=== PATIENT | male | born 1980 | race Caucasian/White ===

== ENCOUNTER → 2025-06-03 14:12 | Outpatient (REF) | payer OTHER, SELFPAY | LOC: RAD 14:12 | PROVIDERS: ATTENDING PHYSICIAN Nurse Practitioner | DX: M79.662 Pain in left lower leg (principal) | CPT/HCPCS: 93971 ==

== ENCOUNTER → 2025-07-22 09:38 | Outpatient (REF) | payer OTHER, SELFPAY | LOC: DHVS 09:38 | PROVIDERS: ATTENDING PHYSICIAN Surgery Vascular Surgery | DX: I87.2 Venous insufficiency (chronic) (peripheral) (principal) | CPT/HCPCS: 93971 ==

== ENCOUNTER 2025-09-09 06:55 | Day surgery (SDC) | payer OTHER, SELFPAY ==
[2025-08-30 07:49] VITALS: BMI 27.5
[2025-08-30 08:37] LABS: Hematocrit 44.5 % (39.0-52.0); Hemoglobin 15.7 g/dL (13.0-18.0); Mean Corp Hgb Conc. 35.3 g/dL (33.0-37.0); Mean Corpuscular Volume 85.6 fL (80.0-94.0); Nucleated Red Blood Cells % 0 % (-); Platelet Count 251 10^3/uL (130-400); Red Cell Dist. Width 11.9 % (11.5-14.5)
[2025-08-30 08:43] LABS: INR 1.03; PT 13.8 Sec (11.4-14.6)
[2025-08-30 08:44] LABS: APTT 25.5 Sec (23.4-35.0)
[2025-08-30 09:24] LABS: Blood Urea Nitrogen 15 mg/dl (9-20); Calcium 9.8 mg/dl (8.4-10.2); Chloride 104 mmol/L (98-107); Estimated Creatinine Clearance 101 ml/min; Glucose 98 mg/dl (70-99); Potassium 4.5 mmol/L (3.5-5.1); Sodium 136 mmol/L (135-145); eGFR > 60.00
[2025-08-30 09:25] LABS: Carbon Dioxide 26 mmol/L (22-30)
[2025-09-09] VITALS (11 sets, daily range): BP systolic 115–162; BP diastolic 73–98
--- NOTE | 2025-09-09 07:09 | HP.FOC2 ---
Focused History & Physical
Chief Complaint
HPI:
Chief Complaint: Superficial thrombophlebitis
HPI / Indication for Planned Procedure: 45-year-old male with past medical history significant for recent foot fracture, asthma, hypertension, hyperlipidemia, diabetes and 2 episodes of superficial thrombophlebitis. Patient presents today baseline
health with no recent illnesses or trauma. No recent changes to medications. Patient wishes to proceed with planned ligation of left saphenopopliteal junction and endovenous ablation with Dr. uDke. Patient completed his last round of Xarelto in
June. Continues on aspirin at this time.
Relevant Past Medical History: Other (Superficial thrombophlebitis x 2, foot fracture)
Relevant Social History: Negative
Relevant Family History: Negative
Relevant Past Surgical History: Negative
Review of Systems
Review of Pertinent Systems: All Systems Negative
Medication
See Medication form for detailed medications: Yes
Medication List (including Herbals & OTC):
aspirin 81 mg tablet 81 mg PO DAILY 08/29/25
multivitamin 1 tab PO DAILY 08/29/25
ibuprofen 200 mg tablet (Advil) 400 mg PO Q6H PRN headache 09/09/25
Medications Reviewed: Yes
Allergies and Reactions
Patient has Allergies: No
Noted Allergies and Reactions:
Allergy/AdvReac Type Severity Reaction Status Date / Time
No Known Allergies Allergy Verified 09/09/25 07:05
Pertinent Physical Exam
All Other Systems: Negative
Head/Neck: Normal
Lungs: Normal
Heart: Normal
Abdomen: Normal
Extremities: Normal
Neurological: Normal
Diagnosis / Assessment
Varicose veins
Plan / Procedure
Planned outpatient ligation/division of the left saphenopopliteal junction, endovenous ablation with Dr. Duke today.
Anesthesia/Sedation to be done by Anesthesia Provider: Yes
[2025-09-09] MEDS: PERIDEX 0.12% ORAL RINSE 15 ML PO (08:02)
[2025-09-09] MEDS: BACTROBAN NASAL 1 GRAM NASAL (08:09)
[2025-09-09] MEDS: NSS 500 IV (08:10)
--- NOTE | 2025-09-09 08:28 | W.SUR.PREOP ---
Pre-Operative Surgical Note
-
I have examined this patient prior to the performance of the scheduled procedure.
The patient's condition is unchanged from the time of the current History and
Physical and the patient is able to undergo the scheduled procedure.
--- NOTE | 2025-09-09 10:49 | OR.RPT ---
Operative Report
Operative Report
Date of Operation: 09/09/2025
Pre Op Diagnosis:
1. Symptomatic left lower extremity venous insufficiency
2. Prior episodes of significant superficial thrombophlebitis involving the left lower extremity
Post Op Diagnosis:
1. Symptomatic left lower extremity venous insufficiency
2. Prior episodes of significant superficial thrombophlebitis involving the left lower extremity
Procedure:
1. Radiofrequency endovenous ablation of left great saphenous vein (mid calf puncture site)
2. Ligation and division of the left small saphenous vein at the sapheno-popliteal junction
Surgeon: Josiah Duke III, MD
Operations Research Engineer: Preston Allred MD PGY2
Anesthesia: Sedation/local
Complications: None
Estimated Blood Loss: Minimal
History and Indications for Procedure: 45-year-old male with previous episodes of significant superficial thrombophlebitis involving the small saphenous vein in the left lower extremity. Venous insufficiency duplex demonstrated reflux in the small
saphenous vein as well as diffuse reflux throughout the great saphenous vein.
Procedure in Detail: Nestor Bernal was correctly identified and placed supine on the operating table. After adequate induction of anesthesia the left leg was frog-legged and the table placed into a reverse Trendelenburg position. The left leg was
prepped and draped in the usual sterile fashion. A time out procedure was performed with the nursing and anesthesia staff confirming the patient's identity as well as the nature and laterality of the procedure.
The left great saphenous vein was identified using ultrasound guidance. The vein was visualized from the distal calf to the saphenofemoral junction. An appropriate site for access was identified at the mid calf. Local anesthesia was infiltrated
into the proposed puncture site. The left great saphenous vein was accessed with a micropuncture needle under ultrasound guidance and the 7 [place] sheath was placed. Under direct ultrasound guidance the 100 cm length /7 cm tip radiofrequency
ablation catheter was advanced towards the saphenofemoral junction. Using a real-time direct ultrasound measurement the tip of the catheter was positioned 2.4 cm from the saphenofemoral junction. The position of the catheter was then externally
marked using the white plastic doughnut on the catheter at the sheath exit site. Using ultrasound guidance Tumescent solution was then infiltrated circumferentially around the left great saphenous vein from the sheath insertion site to the tip of
the catheter near the saphenofemoral junction. At this point the table was flattened out. The left great saphenous vein was then ablated using 2 treatment cycles at each segment. Once completed the sheath and catheter were removed. Direct manual
pressure was held on the puncture site and hemostasis was achieved. A sterile dressing was applied.
The drapes were removed. With the nursing and anesthesia staff we then carefully positioned the patient prone. All pressure points were closely inspected and padded. The posterior leg was prepped and draped in the usual sterile fashion. Using
ultrasound guidance I identified the small saphenous vein. The vein near the saphenous popliteal junction was clearly identified and an appropriate incision was marked at the skin level for planned ligation and division. The vein was compressible
at this location. There was evidence of nonocclusive chronic thrombus in the small saphenous. The mid calf segment was much less compressible and the segment towards the distal calf and ankle was compressible. Under ultrasound guidance I
successfully accessed the small saphenous vein at the distal calf using a micropuncture needle. We could only pass the microwire several centimeters through the vein under ultrasound guidance before we met resistance in the mid calf. I could not
successfully pass the wire through the mid calf vein segment despite multiple attempts and wire manipulation and thus was likely occluded at that level. I therefore abandoned any additional attempts to achieve wire/sheath access.
We made an incision in the proximal calf towards the popliteal fossa. Electrocautery and sharp dissection were used to expose the small saphenous vein near the sapheno-popliteal junction. Several small branches communicating with the small
saphenous vein were ligated and divided between silk ties. We then doubly ligated the small saphenous vein at this level near the sapheno-popliteal junction and then divided the vein sharply with scissors. The wound was irrigated with saline
solution. Hemostasis was achieved in the wound bed. The wound was then closed in layers and sterile skin glue was applied. Local anesthesia was infiltrated into the wound bed.
The patient's leg was cleaned and then wrapped with an Darell wrap from the toes to the proximal thigh. The patient tolerated the procedure well was taken to the recovery room in good condition.
Attestation: I was present and responsible for the entire procedure
Signed:
Josiah Duke III, MD
Vascular Surgery
[facility]
== END 2025-09-09 13:01 | disposition home or self-care (01) ==
LOC: CATH 06:55
PROVIDERS: ATTENDING PHYSICIAN Surgery Vascular Surgery; FAMILY PHYSICIAN Physician Assistant; PRIMARYCARE PHYSICIAN Nurse Practitioner
DX: I80.9 Phlebitis and thrombophlebitis of unspecified site (principal); I87.2 Venous insufficiency (chronic) (peripheral); I83.892 Varicose veins of left lower extremity with other complications; Z79.82 Long term (current) use of aspirin; Z86.72 Personal history of thrombophlebitis; I10 Essential (primary) hypertension; J45.909 Unspecified asthma, uncomplicated; E78.5 Hyperlipidemia, unspecified; E11.9 Type 2 diabetes mellitus without complications
CPT/HCPCS: 36475; 37780; 36415; 80048; 85025; 85610; 85730; 93005

== ENCOUNTER → 2025-09-12 08:12 | Outpatient (REF) | payer OTHER, SELFPAY | LOC: DHVS 08:12 | PROVIDERS: ATTENDING PHYSICIAN Surgery Vascular Surgery; FAMILY PHYSICIAN Physician Assistant | DX: I87.2 Venous insufficiency (chronic) (peripheral) (principal) | CPT/HCPCS: 93971 ==